=== PATIENT | male | born 1980 | race Caucasian/White ===

== ENCOUNTER 2017-11-09 00:25 | Emergency (ER) | payer BC, SELFPAY ==
[2017-11-09 00:42] VITALS: BP 133/84; PULSE 136; RESP 20; TEMP 37.2; O2SAT 97
[2017-11-09] MEDS: OLANZapine ODT 10 MG TAB PO (01:00)
--- NOTE | 2017-11-09 01:03 | PC.NURSE ---
DR Jenkins spoke with his ,he has no allergies,takes no meds.She said he ate commercial bought marijuana brownies today.
--- NOTE | 2017-11-09 01:05 | PC.NURSE ---
HE arrived with 2 [place] police officers via [place] with hands cuffed behind his back.he was placed on gurney and the cuffs were placed in front of him with him supine on gurney.he keeps repeating numbers over and over.
[2017-11-09 01:08] VITALS: BP 128/50; PULSE 122; RESP 20; O2SAT 98
[2017-11-09 01:08] LABS: Add Manual Diff / Slide Review NO; Basophils Percent Auto 0.4 % (0-2); Eosinophils Percent Auto 0.2 % (2-4); Hematocrit 46.4 % (41-53); Hemoglobin 15.9 g/dL (13.5-17.5); Lymphocytes Percent Auto 10.8 % (25-40); Mean Corpuscular HGB Conc 34.3 % (30-36); Mean Corpuscular Hemoglobin 29.4 PG (26-34); Mean Corpuscular Volume 85.5 fL (80-100); Neutrophils Absolute Auto 9800 /uL (3000-5900); Neutrophils Percent Auto 80.6 % (50-75); Platelet Count 265 X10^3/uL (150-400); Red Blood Cell Count 5.43 X10^6/uL (4.5-5.9); Red Cell Distribution Width 13.5 % (11.6-14.8); White Blood Cell Count 12.1 X10^3/uL (4.5-11.0)
[2017-11-09 01:26] LABS: Acetaminophen < 10 ug/mL (10-30); Alanine Aminotransferase 31 IU/L (21-72); Albumin 4.6 g/dL (3.5-5.0); Albumin Globulin Ratio 1.8 (1.0-2.8); Alkaline Phosphatase 48 U/L (38-126); Aspartate Aminotransferase 36 IU/L (17-59); BUN Creatinine Ratio 18.2 (6-22); Bilirubin Total 0.9 mg/dL (0.2-1.3); Blood Urea Nitrogen 20 mg/dL (9-20); Calcium 9.6 mg/dL (8.4-10.2); Carbon Dioxide 23 mmol/L (22-32); Chloride 100 mmol/L (98-107); Creatine Kinase 224 U/L (55-170); Estimated Glomerular Filt Rate > 60.0 mL/min (>60); Ethanol (ETOH) < 10 mg/dL; Globulin 2.6 g/dL (1.7-4.1); Glucose 122 mg/dL (70-100); Potassium 3.3 mmol/L (3.4-5.1); Sodium 140 mmol/L (137-145); Total Protein 7.2 g/dL (6.3-8.2)
[2017-11-09 01:27] LABS: HEMOLYSIS 54 (0-50); Salicylate < 1.0 mg/dL (<20)
--- NOTE | 2017-11-09 01:28 | ED_ITS ---
HPI - Altered Mental Status General Chief Complaint: Altered Mental Status Stated Complaint: Intoxication Time Seen by Provider: 11/09/17 00:40 Source: patient and police Mode of arrival: other Limitations: altered mental status History of Present Illness HPI narrative: 37-year-old otherwise healthy male presents in the custody of police for medical clearance for incarceration. Police were called to the rental facility the patient is staying at on his money [place] when he became unmanageable and violent after eating a marijuana Brownie earlier tonight. His states there is no alcohol or other drugs on board. His only underlying medical condition is anxiety. He has been acting otherwise well. They both ate a Pot Brownie at about 7:00 p.m. complaint: altered mental status and confusion Onset (ago): hour(s) Timing confirmed by: spouse Severity: severe Consistency of symptoms: constant Context: drug abuse Associated symptoms: denies other symptoms Related Data Allergies Allergy/AdvReac Type Severity Reaction Status Date / Time No Known Drug Allergies Allergy Verified 11/09/17 01:03 Review of Systems Review of Systems All systems reviewed & are unremarkable except as noted in HPI and below and unobtainable due to mental status Exam Narrative Exam Narrative: 37-year-old male speaking nonsensically and rocking side to side on the cart. No obvious injuries Initial Vital Signs Initial Vital Signs: Vital Signs Temperature 99 F 11/09/17 00:42 Pulse Rate 136 H 11/09/17 00:42 Respiratory Rate 20 11/09/17 00:42 Blood Pressure 133/84 H 11/09/17 00:42 Pulse Oximetry 97 11/09/17 00:42 Const General: in distress and intoxicated appearing Nutritional Appearance: average body habitus Orientation: awake and confused Limitations: altered mental status HENDE Head: normal to inspection Ears: hearing grossly normal bilaterally Nose: external nose normal Eyes General: appearance normal, both eyes and all related structures Eyelids: eyelids normal Conjunctivae: conjunctivae normal Sclera: sclerae normal Pupils: PERRL EOM: EOM intact bilaterally Neck Neck: normal visual inspection Resp Effort & Inspection: normal respiratory effort, able to speak in complete sentences, no respiratory distress and no use of accessory muscles Auscultation: clear to auscultation bilaterally, no rales, no rhonchi and no wheezes Cardio Rate: tachycardic Rhythm: regular rhythm GI Inspection: non-distended Palpation: soft, no hepatosplenomegaly, No guarding, No pulsatile mass and No tender Auscultation: normal bowel sounds Back/Spine/Pelvis Back: No CVA tenderness Cervical Spine: cervical ROM normal and No pain with cervical ROM Thoracic/Lumbar Spine: thoracic and lumbar spine normal to inspection Neuro General: awake Cognition: abnormal cognition Speech: abnormal speech Motor: muscle tone normal throughout Extrem General: normal to inspection Psych Appearance: disheveled Speech and Movement: agitated and pressured speech Course Orders Ordered: Discontinued Medications Olanzapine (Zyprexa Zydis) 10 mg PO NOW ONE Stop: 11/09/17 00:49 Last Admin: 11/09/17 01:00 Dose: 10 mg Reevaluation(s) Reevaluation #1: Patient is becoming much more lucid and is able to discuss what happened tonight. The patient states he ate half a Brownie, as instructed and after 10 min had no desire to fax then a the remaining half brown. Soon thereafter he became quite anxious and eventually aggressive and the manner described above Reevaluation #2: Patient continues to communicate clearly. He is a bit somnolent but is easily arousable. He is able to tell me his location, the date and the circumstances regarding his arrival. Time: 02:39 Vital Signs - 8 hr 11/09/17 00:42 11/09/17 01:08 11/09/17 01:33 Temperature 99 F Pulse Rate 136 H 122 H 103 H Respiratory Rate 20 20 24 Blood Pressure 133/84 H Blood Pressure [Left Arm] 128/50 H 103/54 L Pulse Oximetry 97 98 95 11/09/17 02:11 Temperature Pulse Rate 97 H Respiratory Rate 18 Blood Pressure Blood Pressure [Left Arm] 115/75 Pulse Oximetry 98 MDM - Altered Mental Status Lab Data Result diagrams: 11/09/17 01:04 11/09/17 01:04 Lab Results 11/09/17 11/09/17 11/09/17 Range/Units 01:04 01:04 01:04 WBC 12.1 H (4.5-11.0) X10^3/uL RBC 5.43 (4.5-5.9) X10^6/uL Hgb 15.9 (13.5-17.5) g/dL Hct 46.4 (41-53) % MCV 85.5 (80-100) fL MCH 29.4 (26-34) PG MCHC 34.3 (30-36) % RDW 13.5 (11.6-14.8) % Plt Count 265 (150-400) X10^3/uL Neut % (Auto) 80.6 H (50-75) % Lymph % (Auto) 10.8 L (25-40) % [place] % (Auto) 8.0 (3-14) % Eos % (Auto) 0.2 L (2-4) % Baso % (Auto) 0.4 (0-2) % Neut # (Auto) 9800 H (6589-6409) /uL Sodium 140 (137-145) mmol/L Potassium 3.3 L (3.4-5.1) mmol/L Chloride 100 (98-107) mmol/L Carbon Dioxide 23 (22-32) mmol/L BUN 20 (9-20) mg/dL Creatinine 1.10 (0.66-1.25) mg/dL Estimated GFR > 60.0 (>60) mL/min BUN/Creatinine Ratio 18.2 (6-22) Glucose 122 H (70-100) mg/dL Calcium 9.6 (8.4-10.2) mg/dL Total Bilirubin 0.9 (0.2-1.3) mg/dL AST 36 (17-59) IU/L ALT 31 (21-72) IU/L Alkaline Phosphatase 48 (38-126) U/L Total Creatine Kinase 224 H (55-170) U/L Total Protein 7.2 (6.3-8.2) g/dL Albumin 4.6 (3.5-5.0) g/dL Globulin 2.6 (1.7-4.1) g/dL Albumin/Globulin Ratio 1.8 (1.0-2.8) TSH 1.38 (0.47-4.68) uIU/mL Thyroxine (T4) 9.24 (5.5-11.0) ug/dL Salicylates < 1.0 (<20) mg/dL Urine Opiates Screen (Negative) Ur Oxycodone Screen (Negative) Urine Methadone Screen (Negative) Acetaminophen < 10 L (10-30) ug/mL Ur Barbiturates Screen (Negative) U Tricyclic Antidepress (Negative) Ur Phencyclidine Scrn (Negative) Ur Amphetamines Screen (Negative) U Methamphetamines Scrn (Negative) Ur MDMA Scrn (Ecstasy) (Negative) U Benzodiazepines Scrn (Negative) Urine Cocaine Screen (Negative) U Marijuana (THC) Screen (Negative) Ethyl Alcohol < 10 mg/dL 11/09/17 Range/Units 01:21 WBC (4.5-11.0) X10^3/uL RBC (4.5-5.9) X10^6/uL Hgb (13.5-17.5) g/dL Hct (41-53) % MCV (80-100) fL MCH (26-34) PG MCHC (30-36) % RDW (11.6-14.8) % Plt Count (150-400) X10^3/uL Neut % (Auto) (50-75) % Lymph % (Auto) (25-40) % [place] % (Auto) (3-14) % Eos % (Auto) (2-4) % Baso % (Auto) (0-2) % Neut # (Auto) (1039-5867) /uL Sodium (137-145) mmol/L Potassium (3.4-5.1) mmol/L Chloride (98-107) mmol/L Carbon Dioxide (22-32) mmol/L BUN (9-20) mg/dL Creatinine (0.66-1.25) mg/dL Estimated GFR (>60) mL/min BUN/Creatinine Ratio (6-22) Glucose (70-100) mg/dL Calcium (8.4-10.2) mg/dL Total Bilirubin (0.2-1.3) mg/dL AST (17-59) IU/L ALT (21-72) IU/L Alkaline Phosphatase (38-126) U/L Total Creatine Kinase (55-170) U/L Total Protein (6.3-8.2) g/dL Albumin (3.5-5.0) g/dL Globulin (1.7-4.1) g/dL Albumin/Globulin Ratio (1.0-2.8) TSH (0.47-4.68) uIU/mL Thyroxine (T4) (5.5-11.0) ug/dL Salicylates (<20) mg/dL Urine Opiates Screen Negative (Negative) Ur Oxycodone Screen Negative (Negative) Urine Methadone Screen Negative (Negative) Acetaminophen (10-30) ug/mL Ur Barbiturates Screen Negative (Negative) U Tricyclic Antidepress Negative (Negative) Ur Phencyclidine Scrn Negative (Negative) Ur Amphetamines Screen Negative (Negative) U Methamphetamines Scrn Negative (Negative) Ur MDMA Scrn (Ecstasy) Negative (Negative) U Benzodiazepines Scrn Negative (Negative) Urine Cocaine Screen Negative (Negative) U Marijuana (THC) Screen Positive H (Negative) Ethyl Alcohol mg/dL Discharge Plan Departure Patient Disposition: Home, Self-Care Clinical Impression: Accidental marijuana overdose, Medical clearance for incarceration Discharge Date/Time: 11/09/17 03:06 Interventions: ED Discharge Assessment Last Done: 11/09/17 03:03 Instructions: DI for Drug Overdose in Adults Activity Restrictions/Additional Instructions: *You have been diagnosed with [ accidental marijuana overdose, You have been MEDICALLY CLEARED FOR INCARCERATION] *What to do: *Follow up with your primary care provider in the next few days *Return to ER if you should have any new, worsening or concerning symptoms
[2017-11-09 01:29] LABS: Urine Amphetamines Negative (Negative); Urine Barbiturates Negative (Negative); Urine Benzodiazepines Negative (Negative); Urine Cocaine Negative (Negative); Urine MDMA Negative (Negative); Urine Methadone Negative (Negative); Urine Methamphetamines Negative (Negative); Urine Morphine/Opi cutoff 2000 Negative (Negative); Urine Oxycodone Negative (Negative); Urine Phencyclidine Negative (Negative); Urine Tetrahydrocannabinol Positive (Negative); Urine Tricyclic Antidepressant Negative (Negative)
[2017-11-09 01:33] VITALS: BP 103/54; PULSE 103; RESP 24; O2SAT 95
[2017-11-09 01:51] LABS: T4 Total Thyroxine 9.24 ug/dL (5.5-11.0)
[2017-11-09 02:05] LABS: Thyroid Stimulating Hormone 1.38 uIU/mL (0.47-4.68)
[2017-11-09 02:11] VITALS: BP 115/75; PULSE 97; RESP 18; O2SAT 98
[2017-11-09 02:50] VITALS: BP 123/75; PULSE 108; RESP 18; O2SAT 95
== END 2017-11-09 03:06 | disposition home or self-care (01) ==
PROVIDERS: Emergency Provider Emergency Medicine
DX: Z00.8 Encounter for other general examination (principal); T40.7X1A Poisoning by cannabis (derivatives), accidental (unintentional), initial encounter
CPT/HCPCS: 36415; 80053; 80305; 80320; 80329; 82550; 84436; 84443; 85025; 99283; G0480